=== PATIENT | female | born 1965 | race Caucasian/White ===

== ENCOUNTER 2017-01-11 10:40 | Emergency (ER) | payer BC ==
[2017-01-11 10:50] VITALS: BP 115/92
--- NOTE | 2017-01-11 10:59 | UC ---
Throat Pain/Nasal Yobani HPI - HPI Summary HPI Summary: 51 YEAR OLD FEMALE PRESENTS WITH COMPLAINS OF COUGH AND SORE THROAT. - History of Current Complaint Chief Complaint: UCRespiratory Stated Complaint: SORE THROAT Time Seen by Provider: 01/11/17 10:58 - Allergies/Home Medications Allergies/Adverse Reactions: Allergies Allergy/AdvReac Type Severity Reaction Status Date / Time No Known Allergies Allergy Verified 01/11/17 10:49 Home Medications: Home Medications Benzonatate CAP* [Tessalon 100 MG CAP*] 100 mg PO TID 01/11/17 [History Confirmed 01/11/17] Cholecalciferol TAB* [Vitamin D TAB*] 1,000 unit PO DAILY 01/11/17 [History Confirmed 01/11/17] Cranberry (Vaccinium Macrocarp [Cranberry] 400 mg PO DAILY 01/11/17 [History Confirmed 01/11/17] Triamterene/HCTZ 37.5-25 MG* [Dyazide CAP*] 1 cap PO DAILY 01/11/17 [History Confirmed 01/11/17] cloNIDine TAB* [Catapres 0.1 MG TAB*] 0.1 mg PO DAILY 01/11/17 [History Confirmed 01/11/17] PMH/Surg Hx/FS Hx/Imm Hx - Surgical History Surgical History: Yes Surgery Procedure, Year, and Place: gall bladder - Social History Alcohol Use: Occasionally Substance Use Type: None Smoking Status (MU): Heavy Every Day Tobacco Smoker Amount Used/How Often: 1 ppd Review of Systems Constitutional: Negative Skin: Negative Eyes: Negative ENT: Sore Throat, Nasal Discharge Respiratory: Cough Cardiovascular: Negative Gastrointestinal: Negative Genitourinary: Negative Motor: Negative Neurovascular: Negative Musculoskeletal: Negative Neurological: Negative Psychological: Negative All Other Systems Reviewed And Are Negative: Yes Physical Exam Triage Information Reviewed: Yes Vital Signs: Initial Vital Signs Temp 36.6 C 01/11/17 10:45 Pulse 135 01/11/17 10:45 Resp 18 01/11/17 10:45 BP 115/92 01/11/17 10:45 Pulse Ox 97 01/11/17 10:45 Eye Exam: Normal ENT Exam: Normal Dental Exam: Normal Neck exam: Normal Neck: Positive: 1 Respiratory Exam: Normal Cardiovascular Exam: Normal Abdominal Exam: Normal Musculoskeletal Exam: Normal Neurological Exam: Normal Psychological Exam: Normal Skin Exam: Normal Throat Pain/Nasal Course/Dx - Differential Dx/Diagnosis Provider Diagnoses: COUGH. SORE THROAT Discharge - Discharge Plan Condition: Stable Disposition: HOME Prescriptions: Albuterol HFA INHALER* [Ventolin HFA Inhaler*] 1 - 2 puff INH Q6H PRN #1 mdi PRN Reason: Wheezing Amoxicillin/Clavulanate TAB* [Augmentin TAB 875*] 875 mg PO BID #20 tab LoraTADine TAB(NF) [Claritin 10 MG TAB(NF)] 10 mg PO DAILY #30 tab guaiFENesin/CODIEN 100MG-10MG* [Robitussin AC 100Mg-10Mg*] 5 ml PO Q4H PRN #120 udc MDD 20 ML PRN Reason: Cough Patient Education Materials: Allergic Rhinitis (ED) Referrals: Non Staff,Doctor [Primary Care Provider] - If Needed
== END 2017-01-11 11:59 | disposition home or self-care (01) ==
LOC: UCCORT 10:40
DX: R05 Cough (principal); J02.9 Acute pharyngitis, unspecified; F17.210 Nicotine dependence, cigarettes, uncomplicated
CPT/HCPCS: 87651; 99202; G0463